=== PATIENT | male | born 1940 | race Caucasian/White ===

== ENCOUNTER → 2016-05-26 | Outpatient (CLI) | payer OTHER ==
[~2016-05-26] MED LIST: ACCUPRIL40 MG PO; ALBUTEROL INHAL17 GM IH; ASPIRIN325 PO; AVELOX400 MG PO; COREG PO; FIBER0.52 GM PO; FISHOIL PO; FOLAST TABLET1 EACH PO; GINKGO BILOBA40 M1; HYDROCHLOROTHIA25 M2 PO; KLOR-CON; LIPITOR40 MG PO; MULTIVITAMINS PO; PLENDIL5 MG PO; VITAMIN E400 UNIT PO; VITCB500GO PO; [UNRECOGNIZED DRUG - OTHER] PO
== END ==
LOC: ULTRA 10:22
DX: K75.9 Inflammatory liver disease, unspecified (principal); B94.8 Sequelae of other specified infectious and parasitic diseases

== ENCOUNTER 2016-08-02 16:47 | Inpatient (IN) | payer OTHER ==
[~2016-08-02] VITALS: Ht 182.9 cm; Wt 80.6 kg
--- NOTE | ~2016-08-02 | D ---
[facility] [place] [address] DISCHARGE SUMMARY Name: CALLIE IRELAND Room #: 431-P [facility] IN M.R.#: [id number] Admission: 08/02/16 Attend Phys: Luis Malagon Discharge: 08/07/16 Date of : 44 Report #: [id number] THIS REPORT FOR: //name// CC: Pedrito Eid DATE OF SERVICE: 08/07/2016 FINAL DIAGNOSES: 1. General weakness. 2. Depression. 3. Hypertension. HOSPITAL COURSE: The patient was admitted initially with concerns of infection. However, this was ruled out. Other lab studies were obtained to try to investigate his general sense of weakness. No definitive diagnosis was made to explain his symptoms. Dr. Eid assessed and treated him during this course and directed his workup, ultimately felt he may have a mood related issue and Remeron was started. He was recommended for shelter rehabilitation, which he declined. DISPOSITION: He is discharging himself to home. Medications will be called in for him. He is to follow up with Dr. Eid in 1 week. Diet and activity as tolerated. By: 1330 1715 Ray Motta MD /nt
--- NOTE | ~2016-08-02 | H ---
[facility] [place] [address] HISTORY AND PHYSICAL Name: CALLIE IRELAND Bijan Room #: 431-P ADM IN M.R.#: [id number] Admission: 08/02/16 Attend Phys: Luis Malagon Discharge: Date of : 44 Report #: [id number] THIS REPORT FOR: //name// CC: Pedrito Eid DATE OF SERVICE: 08/02/2016 CHIEF COMPLAINT: This is a 76-year-old male with weakness and difficulty urinating. HISTORY OF PRESENT ILLNESS: This is a 76-year-old male who has just been failing at home; he is losing weight, he is having difficulty making good decisions, maybe drinking at home some. I am not sure that he is adequately taking his medications correctly. I have been trying to figure out what the issue is and all of his parameters seem to be stable; however, he is not looking well at all and he presented into the office with generalized weakness, shortness of breath, urinary frequency, and I walked in the room and he has his shirt off and he just looks terrible. His exam was really nonfocal, but I was worried that he could be in the early ____ of septic event. PAST MEDICAL HISTORY: Noteworthy for benign prostatic hypertrophy, essential hypertension; he has hyperlipidemia. MEDICATIONS: List includes atorvastatin, carvedilol, Lasix, losartan, felodipine and numerous vitamins. FAMILY HISTORY: Noncontributory. SOCIAL HISTORY: I am concerned that is where the problem is; for the most part, he is alone. REVIEW OF SYSTEMS: No specific cardiopulmonary complaints. No specific GI complaints. He is complaining of urinary frequency. PHYSICAL EXAMINATION: GENERAL: Shows him to be poorly groomed. He is awake, he is alert and he seems oriented and able to give me a coherent history, but I am worried about his judgment. VITAL SIGNS: Stable. HEENT: Otherwise negative. NECK: Supple without thyromegaly or adenopathy. CHEST: Clear. CARDIOVASCULAR: Shows a regular rate and rhythm without murmur. ABDOMEN: Soft and nontender without hepatosplenomegaly. EXTREMITIES: Show no cyanosis, clubbing or edema. NEUROLOGIC: Shows nothing focal at this time. [facility] [address] [place] [address] HISTORY AND PHYSICAL Name: CALLIE IRELAND Room #: [address] [place] [address] [place] [facility] [place].#: [id number] Admission: 08/02/16 Attend Phys: Luis Malagon Discharge: Date of : 44 Report #: [id number] LABORATORY PARAMETERS: Essentially negative. He does have mild renal insufficiency with a creatinine stable at about 1.7. Urinalysis showed pyuria. IMAGING STUDIES: Electrocardiogram was nonischemic. His chest x-ray was clear. ASSESSMENT: This is a patient, 76 years of age, with significant weakness and failure to thrive and I am trying to decide how much of this is psychosocial versus how much of this could potentially be medical. Thus far, I have nothing to support a serious medical condition, but I am worried that he has urinary tract infection and maybe his temperature change that I noted in the office could have been an early septic event. So, his other comorbid conditions include hyperlipidemia and hypertension. PLAN: IV Zosyn therapy and evaluation of his bladder. <ELECTRONICALLY SIGNED> By: Pedrito Eid MD 08/05/16 0950 1322 1445 Pedrito Eid MD /nt
--- NOTE | ~2016-08-02 | EKG ---
[address] [employer] [place] [address] ELECTROCARDIOGRAM REPORT Name: CALLIE IRELAND Room #: 431- ADM IN M.R.#: [id number] Admission: 08/02/16 Attend Phys: Luis Malagon Discharge: Date of : 44 Report #: [id number] THIS REPORT FOR: //name// [facility] Test Date: 2016-08-02 Test Time: 20:01:57 Pat Name: CALLIE IRELAND Department: Room: 431 Gender: M [employer]: Luis BUCKLEY : 1940 Requested By: Pedrito Eid Order Number: [id number] MD: Marc Sellers Measurements Intervals [place] Rate: 61 P: 16 MD: 171 QRS: -28 QRSD: 91 T: 4 QT: 491 QTc: 495 Interpretive Statements Sinus rhythm Probable left atrial enlargement Borderline left axis deviation Poor R wave progression Compared to ECG 11/28/2009 20:47:57 No significant changes Electronically Signed On 08-03-2016 7:24:34 CDT by Marc Sellers [email or web address] <ELECTRONICALLY SIGNED> By: Marc Sellers MD, [facility] 08/03/16 0724 00 00 Marc Sellers MD, [facility] /EPI
[2016-08-02 18:02] VITALS: BP 85/49
[2016-08-02 18:07] VITALS: BP 95/58
[2016-08-02 20:15] VITALS: BP 115/67
[2016-08-02 20:15] LABS: HEMATOCRIT 38.8 % (42.0-52.0); HEMOGLOBIN 13.2 gm/dL (14.0-18.0); MCH 35.8 pg (26.0-34.0); MCV 105.3 fL (80.0-100.0); RBC 3.68 mil/uL (4.50-6.00); RDW 13.3 % (10.5-14.5); WBC 7.5 thou/uL (4.0-11.0)
[2016-08-02 20:19] LABS: MANUAL DIFF YES
[2016-08-02 20:38] LABS: ALBUMIN 3.5 g/dL (3.4-5.0); CALCIUM 9.2 mg/dL (8.5-10.1); CREATININE 1.9 mg/dL (0.7-1.3); POTASSIUM 4.1 mmol/L (3.5-5.1); TOTAL BILIRUBIN 1.2 mg/dL (<0.1-1.0); TOTAL PROTEIN 7.2 g/dL (6.4-8.2); TROPONIN-I 0.05 ng/mL (<0.04-0.07)
[2016-08-02 21:03] LABS: ABSOLUTE NEUTROPHILS 6.5 thou/uL (1.4-8.2); PLATELET COUNT 97 thou/uL (150-400); TOTAL CELL COUNT 100
[2016-08-03 04:26] VITALS: BP 170/94
[2016-08-03 05:00] VITALS: BP 144/86
[2016-08-03 05:27] LABS: URINE BILIRUBIN NEGATIVE (Negative); URINE BLOOD TRACE (Negative); URINE COLOR YELLOW; URINE GLUCOSE-RANDOM* NEGATIVE (Negative); URINE KETONES NEGATIVE (Negative); URINE NITRITE NEGATIVE (Negative); URINE PROTEIN (DIPSTICK) TRACE (Negative)
[2016-08-03 06:33] LABS: CASTS None Seen /LPF (None Seen); SQUAMOUS 0-3 Few /LPF (0-3)
[2016-08-03 06:34] LABS: BACTERIA 1-9 Few /HPF (None Seen); CALCIUM OXALATE 0-3 Few /LPF (None Seen); URINE RBC 0-2 Rare /HPF (0-2); URINE WBC 0-5 Rare /HPF (0-5)
[2016-08-03 08:57] VITALS: BP 169/76
[2016-08-03 16:08] VITALS: BP 180/97
[2016-08-03 20:00] VITALS: BP 167/113
[2016-08-04] VITALS (7 sets, daily range): BP systolic 80–189; BP diastolic 41–106
[2016-08-04 04:08] LABS: CHOLESTEROL 170 mg/dL (<200); HDL CHOLESTEROL 116 mg/dL (>40); LDL CHOLESTEROL 45 mg/dL (<100); TC:HDL 1.5 Ratio (Not establshd); TRIGLYCERIDE 46 mg/dL (<150); VLDL 9 mg/dL (<40)
[2016-08-04 04:25] LABS: SERUM ASSESSMENT Clear
[2016-08-04 04:37] LABS: FOLIC ACID 8.7 ng/mL (8.6-58.9); TSH 1.99 uIU/mL (0.358-3.740)
[2016-08-04 11:13] LABS: FREE T4 1.54 ng/dL (0.82-1.77)
[2016-08-05 04:11] LABS: GLYCOHEMOGLOBIN (HGB A1C) 4.9 % (4.8-5.6)
[2016-08-05 15:06] VITALS: BP 145/84
[2016-08-05 20:00] VITALS: BP 164/74
[2016-08-06 00:40] VITALS: BP 185/92
[2016-08-06 03:20] VITALS: BP 184/87
[2016-08-06 07:06] VITALS: BP 192/92
[2016-08-06 11:15] VITALS: BP 144/75
[2016-08-06 15:35] VITALS: BP 139/65
[2016-08-06 20:00] VITALS: BP 138/78
[2016-08-07 04:00] VITALS: BP 180/96
[2016-08-07 09:00] VITALS: BP 167/82
[2016-08-07] MEDS ORDERED: COZAAR100 MG PO (13:03)
[2016-08-07] MEDS ORDERED: CARVEDILOL25 MG PO (13:03)
[2016-08-07] MEDS ORDERED: REMERON15 MG PO (13:04)
[2016-08-07 14:19] VITALS: BP 167/82
[2016-08-07 14:23] VITALS: BP 167/82
== END 2016-08-07 14:57 | disposition home or self-care (01) | DRG 947 ==
LOC: 4E 16:47
PROVIDERS: Internal Medicine; Psychiatry & Neurology Neurology
DX: R53.81 Other malaise (principal); E43 Unspecified severe protein-calorie malnutrition; N40.0 Benign prostatic hyperplasia without lower urinary tract symptoms; I10 Essential (primary) hypertension; E78.5 Hyperlipidemia, unspecified; Z68.24 Body mass index [BMI] 24.0-24.9, adult; F32.9 Major depressive disorder, single episode, unspecified
CPT/HCPCS: 10783